=== PATIENT | male | born 1955 | race Hispanic/Latino ===

== ENCOUNTER 2020-12-22 20:52 | Observation (INO) | payer BC, OTHER ==
[~2020-12-22] VITALS: Ht 175.3 cm; Wt 87.1 kg
[~2020-12-22 20:52] MED LIST: ACYC-138 PO; ALBU8.5H3 IH; GEMF600T89 PO; GLYB1TAB28 PO; HYDR-4064 PO; LISI-809 PO; RANO500T2 PO; SIMV-43 PO; TEMA30CA PO
[2020-12-22 21:06] VITALS: BP 149/78
[2020-12-22 21:16] LABS: BASOPHILS % (AUTO) 0.9 % (0.0-5.0); EOSINOPHILS % (AUTO) 2.1 % (0.0-8.0); LYMPHOCYTES % (AUTO) 39.4 % (21.0-51.0); MEAN CORPUSCULAR HEMOGLOBIN 32.8 pg (27.0-33.0); MEAN CORPUSCULAR HGB CONC 33.5 g/dL (32.0-36.0); MEAN CORPUSCULAR VOLUME 98.1 fL (79-99); MONOCYTES % (AUTO) 11.6 % (3.0-13.0); NEUTROPHILS % (AUTO) 45.6 % (40.0-77.0); PLATELET COUNT (AUTO) 222 K/uL (130-400); RED BLOOD CELL COUNT(AUTO) 4.69 MIL/uL (4.50-6.20); WHITE BLOOD COUNT (AUTO) 6.7 K/uL (4.8-10.8)
[2020-12-22 21:22] LABS: INR 1.01 (0.85-1.15)
[2020-12-22 21:24] LABS: PARTIAL THROMBOPLASTIN TIME 27.5 SEC (26.3-35.5)
[2020-12-22 21:35] LABS: B-TYPE NATRIURETIC PEPTIDE 30 pg/mL (0-100)
[2020-12-22 21:40] LABS: CREATININE 0.9 mg/dL (0.5-1.5); POTASSIUM 4.4 mmol/L (3.5-5.1)
[2020-12-22 21:44] LABS: ALBUMIN 3.7 g/dL (3.5-5.0); BILIRUBIN,TOTAL 0.2 mg/dL (0.2-1.0)
[2020-12-22 21:50] VITALS: BP 129/76
[2020-12-22] MEDS ORDERED: CLOP75TA32 PO (22:46)
[2020-12-22] MEDS ORDERED: FINA5TAB41 PO (22:46)
[2020-12-22] MEDS ORDERED: LISI-809 PO (22:46)
[2020-12-22] MEDS ORDERED: METF-444 PO (22:47)
[2020-12-22] MEDS ORDERED: SIMV-43 PO (22:47)
[2020-12-22] MEDS ORDERED: MONT10TA32 PO (22:49)
[2020-12-22] MEDS ORDERED: GABA300S PO (22:49)
[2020-12-22] MEDS ORDERED: ZOLP5TAB8 PO (22:50)
[2020-12-22] MEDS ORDERED: ACYC-138 PO (22:50)
[2020-12-22] MEDS ORDERED: RANO500T2 PO (22:51)
[2020-12-22] MEDS ORDERED: GEMF600T89 PO (22:51)
[2020-12-22 22:52] VITALS: BP 123/79
[2020-12-22 23:07] LABS: APPEARANCE,URINE Clear (CLEAR); BILIRUBIN,URINE Negative (NEGATIVE); COLOR,URINE Yellow (YELLOW); GLUCOSE, URINE (UA) Negative (NEGATIVE); KETONES,URINE Negative (NEGATIVE); LEUKOCYTE ESTERASE ,URINE Negative (NEGATIVE); NITRATE,URINE Negative (NEGATIVE); OCCULT BLOOD,URINE Negative (NEGATIVE); PH,URINE 6.5 (5.0-8.0); PROTEIN,URINE Negative (NEGATIVE); UROBILINOGEN,URINE 0.2 mg/dL (0.2-1.0)
[2020-12-22] MEDS ORDERED: HYDROCODONE/ACETAMINOPHEN 5/325 MG TAB PO PRN (23:30)
[2020-12-22] MEDS ORDERED: ONDANSETRON 4MG INJ IV PRN (23:30)
[2020-12-22] MEDS: NITROGLYCERIN 1GM OINT 1 INCH/1GM TD SCH (23:35)
[2020-12-23 01:20] VITALS: BP 147/76
[2020-12-23] MEDS: PHARMACY COMMUNICATION MISC SCH ×2 (02:00→12:06)
[2020-12-23 04:48] VITALS: BP 92/58
[2020-12-23 06:29] LABS: EOSINOPHILS % (AUTO) 2.7 % (0.0-8.0); HEMATOCRIT 42.3 % (42-54); LYMPHOCYTES % (AUTO) 40.4 % (21.0-51.0); MEAN CORPUSCULAR HEMOGLOBIN 32.5 pg (27.0-33.0); MEAN CORPUSCULAR HGB CONC 32.9 g/dL (32.0-36.0); MEAN CORPUSCULAR VOLUME 98.8 fL (79-99); NEUTROPHILS % (AUTO) 43.7 % (40.0-77.0); PLATELET COUNT (AUTO) 200 K/uL (130-400); RED BLOOD CELL COUNT(AUTO) 4.28 MIL/uL (4.50-6.20); RED CELL DISTRIBUTION WIDTH 13.2 % (11.0-15.5); WHITE BLOOD COUNT (AUTO) 5.8 K/uL (4.8-10.8)
[2020-12-23 06:58] LABS: CARBON DIOXIDE 31 mmol/L (21-32); CHLORIDE 104 mmol/L (101-111); CHOLESTEROL 185 mg/dL (<200); CREATINE KINASE, TOTAL 51 U/L (21-232); CREATININE 0.9 mg/dL (0.5-1.5); GLOMERULAR FILTR. RATE CALC 91 mL/min (>60); GLUCOSE,RANDOM 111 mg/dL (70-105); HDL CHOLESTEROL 57 mg/dL (29-71); LDL DIRECT 96 mg/dL (0-99); MYOGLOBIN 39 ng/mL (10-92); PHOSPHORUS 3.8 mg/dL (2.5-4.9); POTASSIUM 4.6 mmol/L (3.5-5.1); SODIUM SERUM 142 mmol/L (136-145); THYROID STIMULATING HORMONE 1.68 uIU/mL (0.36-3.74); TRIGLYCERIDES 189 mg/dL (30-200); TROPONIN I < 0.04 ng/mL (0.00-0.06); UREA NITROGEN, BLOOD 15 mg/dL (7-18)
[2020-12-23 07:01] LABS: HEMOGLOBIN A1C 6.4 % (4.0-6.0)
[2020-12-23] MEDS: INSULIN HUMULIN R 100 UNIT/ML 3ML SQ SCH ×3 (07:30→16:30)
[2020-12-23] MEDS ORDERED: RANOLAZINE 500 MG TAB.SR.12H PO SCH (09:00)
[2020-12-23] MEDS ORDERED: ACYCLOVIR 800 MG TABLET PO SCH (09:00)
[2020-12-23] MEDS ORDERED: GEMFIBROZIL 600 MG TABLET PO SCH (09:00)
[2020-12-23] MEDS ORDERED: FINASTERIDE 5 MG TABLET PO SCH (09:00)
[2020-12-23] MEDS ORDERED: LISINOPRIL 5 MG TABLET PO SCH (09:00)
[2020-12-23] MEDS ORDERED: ENOXAPARIN SODIUM 40 MG/0.4 ML SYRINGE SQ SCH (09:00)
[2020-12-23] MEDS ORDERED: FAMOTIDINE 20MG TAB PO SCH (09:00)
[2020-12-23] MEDS ORDERED: CLOPIDOGREL 75MG TAB PO SCH (09:00)
[2020-12-23] MEDS: NITROGLYCERIN 1GM OINT 1 INCH/1GM TD SCH (09:18)
[2020-12-23] MEDS: GABAPENTIN 300 MG CAPSULE PO SCH ×2 (09:18→14:00)
[2020-12-23 09:35] VITALS: BP 125/75
[2020-12-23 11:20] LABS: CREATINE KINASE, TOTAL 52 U/L (21-232); MYOGLOBIN 31 ng/mL (10-92); TROPONIN I < 0.04 ng/mL (0.00-0.06)
[2020-12-23 11:41] VITALS: BP 112/65
[2020-12-23] MEDS ORDERED: NITR0.4T SL (15:27)
[2020-12-23] MEDS ORDERED: ISOS60TA77 PO (15:27)
[2020-12-23] MEDS ORDERED: ISOSORBIDE MONO 60MG SR TAB PO SCH (15:30)
[2020-12-23 16:09] VITALS: BP 99/62
[2020-12-23 18:44] VITALS: BP 97/61
[2020-12-23] MEDS ORDERED: SIMVASTATIN 20 MG TABLET PO SCH (21:00)
[2020-12-23] MEDS ORDERED: ZOLPIDEM TARTRATE 5 MG TAB PO SCH (21:00)
[2020-12-27] MEDS ORDERED: LISI2.5T13 PO (11:28)
[2020-12-27] MEDS ORDERED: ATOR20TA65 PO (11:28)
== END 2020-12-23 18:47 | disposition home or self-care (01) ==
LOC: EDH 20:52 → INTOOBSV 23:07 → EDHIP 23:07
PROVIDERS: ADMIT Internal Medicine; ATTEND Internal Medicine
DX: I25.110 Atherosclerotic heart disease of native coronary artery with unstable angina pectoris (principal); I24.9 Acute ischemic heart disease, unspecified; I10 Essential (primary) hypertension; J45.909 Unspecified asthma, uncomplicated; E11.9 Type 2 diabetes mellitus without complications; E78.5 Hyperlipidemia, unspecified; Z95.1 Presence of aortocoronary bypass graft; Z79.02 Long term (current) use of antithrombotics/antiplatelets; Z79.84 Long term (current) use of oral hypoglycemic drugs; Z79.899 Other long term (current) drug therapy; Z88.6 Allergy status to analgesic agent; Z95.5 Presence of coronary angioplasty implant and graft
CPT/HCPCS: 36415 ×2; 71045; 80048; 80053; 80061; 81003; 82550 ×3; 82948; 83036; 83735; 83874 ×2; 83880; 84100; 84443; 84484 ×3; 85025 ×2; 85610; 85730; 93005; 96372; 99285; G0378 ×8; J1650

== ENCOUNTER 2020-12-31 05:48 | Day surgery (SDC) | payer OTHER ==
[2020-12-26 15:31] LABS: BASOPHILS % (AUTO) 0.8 % (0.0-5.0); EOSINOPHILS % (AUTO) 1.3 % (0.0-8.0); HEMATOCRIT 41.2 % (42-54); LYMPHOCYTES % (AUTO) 33.1 % (21.0-51.0); MEAN CORPUSCULAR HEMOGLOBIN 32.9 pg (27.0-33.0); MEAN CORPUSCULAR HGB CONC 33.3 g/dL (32.0-36.0); MONOCYTES % (AUTO) 14.3 % (3.0-13.0); NEUTROPHILS % (AUTO) 50.1 % (40.0-77.0); PLATELET COUNT (AUTO) 216 K/uL (130-400); RED BLOOD CELL COUNT(AUTO) 4.16 MIL/uL (4.50-6.20); WHITE BLOOD COUNT (AUTO) 5.2 K/uL (4.8-10.8)
[2020-12-26 15:46] LABS: INR 1.05 (0.85-1.15); PROTHROMBIN TIME 11.4 SEC (9.6-11.6)
[2020-12-26 15:48] LABS: APPEARANCE,URINE Clear (CLEAR); BILIRUBIN,URINE Negative (NEGATIVE); COLOR,URINE Dark Yellow (YELLOW); GLUCOSE, URINE (UA) >=1000 mg/dL (NEGATIVE); KETONES,URINE Negative (NEGATIVE); LEUKOCYTE ESTERASE ,URINE Negative (NEGATIVE); NITRATE,URINE Negative (NEGATIVE); OCCULT BLOOD,URINE Negative (NEGATIVE); PH,URINE 6.5 (5.0-8.0); PROTEIN,URINE Negative (NEGATIVE)
[2020-12-26 15:48] LABS: CREATININE 0.9 mg/dL (0.5-1.5); PARTIAL THROMBOPLASTIN TIME 27.6 SEC (26.3-35.5)
[2020-12-26 16:07] LABS: BACTERIA,URINE Rare /HPF (None Seen); RBC,URINE None Seen /HPF (0-1); WBC,URINE 0-1 /HPF (0-1)
[2020-12-26 16:08] LABS: SQUAMOUS EPITHELIAL CELL,UR Rare /HPF (0-2)
[2020-12-27 10:53] VITALS: BP 133/64
[~2020-12-31] VITALS: Ht 175.3 cm; Wt 87.0 kg
[2020-12-31] VITALS (14 sets, daily range): BP systolic 102–130; BP diastolic 61–74
[~2020-12-31 05:48] MED LIST changes: -ALBU8.5H3 IH; +ATOR20TA65 PO; +CLOP75TA32 PO; +FINA5TAB41 PO; +GABA300S PO; -GEMF600T89 PO; -GLYB1TAB28 PO; -HYDR-4064 PO; +ISOS60TA77 PO; -LISI-809 PO; +LISI2.5T13 PO; +METF-444 PO; +MONT10TA32 PO; +NITR0.4T SL; -SIMV-43 PO; -TEMA30CA PO; +ZOLP5TAB8 PO
[2020-12-31] MEDS ORDERED: HEPARIN 10,000 UNIT/10ML (1,000 UNIT/ML) VIAL ONE (07:16)
[2020-12-31] MEDS ORDERED: NITROGLYCERIN 2 MG VIAL IV ONE (07:16)
[2020-12-31] MEDS ORDERED: IOHEXOL-350 50ML VIAL IV ONE ×2 (07:16→07:51)
[2020-12-31] MEDS ORDERED: IOHEXOL 350 MG/ML 100ML INFUS..BTL IV ONE ×2 (07:17→08:12)
[2020-12-31] MEDS ORDERED: LIDOCAINE HCL 400MG/20ML VIAL ONE ×2 (07:17→08:06)
[2020-12-31] MEDS ORDERED: 0.9%NACL 1000ML 1,000 ML IV ONE (07:23)
[2020-12-31] MEDS ORDERED: TICAGRELOR 90 MG TABLET ONE (08:00)
[2020-12-31] MEDS ORDERED: LIDOCAINE PF 100MG/5ML (2%) SYRINGE 5ML ONE (08:02)
[2020-12-31] MEDS ORDERED: BIVALIRUDIN 250 MG/VIAL IV ONE (08:21)
[2020-12-31] MEDS ORDERED: 0.9%NACL 1000ML 1,000 ML IV SCH (09:00)
[2020-12-31] MEDS ORDERED: METOPROLOL TARTRATE 1 MG/ML 5ML VIAL IV PRN (09:00)
[2020-12-31] MEDS ORDERED: GLUCAGON 1MG KIT 1 MG ML IM PRN (09:00)
[2020-12-31] MEDS ORDERED: NITROGLYCERIN 0.4 MG SL TAB SL PRN (09:00)
[2020-12-31] MEDS ORDERED: HYDRALAZINE 20MG/ML VIAL IV PRN (09:00)
[2020-12-31] MEDS ORDERED: DEXTROSE 50%-WATER 50 ML DISP.SYRIN IV PRN (09:00)
[2020-12-31] MEDS ORDERED: SODIUM BICARB 50MEQ 50ML VIAL 50 ML ONE (11:16)
[2020-12-31] MEDS ORDERED: INSULIN HUMULIN R 100 UNIT/ML 3ML SQ SCH (11:30)
== END 2020-12-31 17:05 | disposition home or self-care (01) ==
LOC: DAH 05:48
PROVIDERS: ATTEND Internal Medicine Cardiovascular Disease
DX: I25.110 Atherosclerotic heart disease of native coronary artery with unstable angina pectoris (principal); I25.82 Chronic total occlusion of coronary artery; I11.0 Hypertensive heart disease with heart failure; I50.33 Acute on chronic diastolic (congestive) heart failure; E11.9 Type 2 diabetes mellitus without complications; E78.5 Hyperlipidemia, unspecified; J45.909 Unspecified asthma, uncomplicated; I87.2 Venous insufficiency (chronic) (peripheral); Z79.01 Long term (current) use of anticoagulants; Z79.84 Long term (current) use of oral hypoglycemic drugs; Z79.899 Other long term (current) drug therapy; Z98.890 Other specified postprocedural states; Z95.1 Presence of aortocoronary bypass graft; Z82.49 Family history of ischemic heart disease and other diseases of the circulatory system; Z83.3 Family history of diabetes mellitus; Z91.040 Latex allergy status; Z79.82 Long term (current) use of aspirin
CPT/HCPCS: 36415; 80048; 81001; 82948 ×2; 85025; 85610; 85730; 93005; 93459; A4215; A4216; A4221; A4222; A4223 ×3; A4606; A4663; C1725; C1760; C1769 ×2; C1887; C1894 ×2; C9604; J0583; J1644 ×2; J2001; J3490 ×4; J7030; Q9965 ×2; Q9967 ×3